=== PATIENT | female | born 1955 | race Hispanic/Latino ===

== ENCOUNTER → 2022-03-27 | Outpatient (CLI) | payer OTHER | END | disposition home or self-care (01) | LOC: ICE 11:10 | PROVIDERS: ATTEND Hospitalist | DX: Z20.822 Contact with and (suspected) exposure to COVID-19 (principal) | CPT/HCPCS: 87426 ==

== ENCOUNTER 2025-02-11 21:11 | Emergency (ER) | payer OTHER, MEDICARE ==
[~2025-02-11] VITALS: Ht 157.5 cm; Wt 83.9 kg
[2025-02-11 22:13] LABS: IMMATURE GRANULOCYTE ABSOLUTE 0.02 K/uL (0-1); NUCLEATED RED BLOOD CELLS 0.0 % (0.0-0.19); PLATELET COUNT (AUTO) 185 K/uL (130-400); RED BLOOD CELL COUNT(AUTO) 4.55 MIL/uL (4.00-5.50); RED CELL DISTRIBUTION WIDTH 12.5 % (11.0-15.5); WHITE BLOOD COUNT (AUTO) 6.4 K/uL (4.8-10.8)
--- NOTE | 2025-02-11 22:17 | EKG ---
[facility] Test Date: 2025-02-11 Test Time: 22:12:07 Pat Name: OTONIEL RUSH Department: [facility] Room: Gender: F Consolidator: [id number] : 1955 Requested By: CHRIS DONOVAN Order Number: [id number] Reading MD: Juan Nguyen Measurements Intervals [place] Rate: 70 P: 60 SD: 146 QRS: 27 QRSD: 87 T: 75 QT: 384 QTc: 415 Interpretive Statements Sinus rhythm Nonspecific T abnrm, anterolateral leads No previous ECG available for comparison Electronically Signed On 02-12-2025 13:24:07 CDT by Juan Nguyen Please click the below link to view image of tracing.
--- NOTE | 2025-02-11 22:21 | HMCIMG ---
EXAM: US for Deep Venous Thrombosis, left Lower Extremity. CLINICAL HISTORY: Left leg swelling. TECHNIQUE: Real-time ultrasound scan of the veins of the left lower extremity with color Doppler flow, spectral waveform analysis, and compression. COMPARISON: None provided. FINDINGS: DEEP VEINS: The common femoral, superficial femoral, and popliteal veins are echolucent and compressible. There is normal color Doppler flow throughout. The visualized calf veins appear patent. SOFT TISSUES: No popliteal fossa cyst or other abnormalities. IMPRESSION: No deep venous thrombosis is evident on left lower extremity examination. /[place]
[2025-02-11 22:26] LABS: CREATININE 0.6 mg/dL (0.5-1.0); GLOMERULAR FILTR. RATE CALC 97.0 mL/min (>90); GLUCOSE,RANDOM 103.0 mg/dL (70-105); SODIUM SERUM 140.0 mmol/L (136-145); UREA NITROGEN, BLOOD 11.0 mg/dL (7-18)
--- NOTE | 2025-02-11 23:17 | HMCIMG ---
EXAM: CR Left Ankle, 3 views. CLINICAL HISTORY: Pain. COMPARISON: None provided. FINDINGS: No acute fracture or aggressive appearing osseous lesion. Mild osteoarthritis. Large plantar and small posterior calcaneal enthesophytes. Diffuse soft tissue swelling is evident. IMPRESSION: No acute bony abnormality is evident. Mild osteoarthritis. Large plantar and small posterior calcaneal enthesophytes. /[place]
--- NOTE | 2025-02-11 23:42 | ERN ---
ED Note History of Present Illness Stated Complaint: LEFT ANKLE SWELLING Chief Complaint: Lower Extremity Pain/Injury Time Seen by MD: 21:23 Time Seen by Midlevel: 21:23 Dictation: The patient is a 69-year-old female with no significant past medical history who presents to the emergency department with complaints of left lower extremity swelling onset yesterday. Patient reports she was seen at urgent care and referred to ER to rule out DVT. Patient denies any shortness of breath, chest pain. Reports that is swelling is worse at her ankle but denies any ankle trauma. Denies any recent travel or recent surgery. Allergies: Coded Allergies: No Known Allergies (Unverified Allergy, Unknown, 02/11/25) Past Medical History Past Medical History: No Pertinent History Surgical History: RN Note Reviewed/Agreed w/PFSH: Yes Review of System Dictation Constitutional: Negative for fever,chills, and weight loss Eyes: Negative for injury, pain,redness, and discharge ENT: Negative for injury,pain or swelling Cardiovascular: Negative for chest pain, palpitations, positive for left lower extremity edema Respiratory: Negative for shortness of breath, cough, and wheezing, Abdomen/GI: Negative for abdominal pain, nausea, vomiting, diarrhea, and constip ation Back: Negative for injury and pain : Negative for injury, bleeding and discharge MS/Extremity: Negative for injury and deformity Skin: Negative for rash, and discoloration Neuro: Negative for headache, weakness, numbness, tingling, and seizure Psych: Negative for suicide ideation, homicidal ideation, and hallucinations Initial Vital Sign VS Vital Signs Date Time Temp Pulse Resp B/P (MAP) Pulse Ox O2 Delivery O2 Flow Rate FiO2 02/11/25 21:12 97.9 74 18 170/83 99 Room Air Physical Exam Dictation Vital Signs reviewed General Appearance: Alert, oriented x 3, no acute distress, well developed, nourished. Head and Face: non-traumatic. Eyes: PERRL, pink conjunctivas, eyelid no trauma, anterior chamber with arcus senilis. Ears: Pinnas intact and no signs of trauma or erythema ear canals clear and no discharge TM no erythema Nose: No discharge, no bleeding. Oropharynx: Mouth normal, tongue pink. pharynx clear,no erythema, tonsils no exudates, no abscesses noted, mucous membrane moist Neck: Supple, non-tender, no thyromegaly, no masses, no JVD, no bruits Breast:Deferred Chest:No tenderness, no crepitus, no paradoxical movement, no retractions Lungs:Clear, well-ventilated, symmetric, no rales, no wheezing, no rhonchi, no stridor, good breath sounds bilaterally Heart: Regular rate, regular rhythm, no murmur, no gallops Vascular: Scant left lower nonpitting edema Abdomen: Soft, positive bowel sounds, nondistended, no guarding, nontender, no rebound, no masses no hepatomegaly, no splenomegaly, no Heard's sign, no hernias. Rectal: Deferred Genital: Deferred Neurological: Normal speech, motor function intact, sensory function intact Musculoskeletal: Neck nontender, full range of motion, back nontender, full range of motion, Extremities: nontender, full range of motion Skin: Color pink, dry, no turgor, no rash, no lacerations, no abrasions, no contusions. Lymphatic: Deferred Results (Laboratory/Radiology) Laboratory/Radiology Laboratory Tests Test 02/11/25 20:26 White Blood Count 6.4 K/uL (4.8-10.8) Red Blood Count 4.55 MIL/uL (4.00-5.50) Hemoglobin 13.7 g/dL (12.0-16.0) Hematocrit 41.0 % (36-48) Mean Corpuscular Volume 90.1 fL (79-99) Mean Corpuscular Hemoglobin 30.1 pg (27.0-33.0) Mean Corpuscular Hemoglobin Concent 33.4 g/dL (32.0-36.0) Red Cell Distribution Width 12.5 % (11.0-15.5) Platelet Count 185 K/uL (130-400) Mean Platelet Volume 11.2 fL (7.5-10.5) H Immature Granulocyte % (Auto) 0.3 % (0-1) Neutrophils (%) (Auto) 48.7 % (40.0-77.0) Lymphocytes (%) (Auto) 41.3 % (21.0-51.0) Monocytes (%) (Auto) 6.8 % (3.0-13.0) Eosinophils (%) (Auto) 2.0 % (0.0-8.0) Basophils (%) (Auto) 0.9 % (0.0-5.0) Neutrophils # (Auto) 3.1 K/uL (1.8-7.7) Lymphocytes # (Auto) 2.6 K/uL (1.0-4.8) Monocytes # (Auto) 0.4 K/uL (0.1-1.0) Eosinophils # (Auto) 0.13 K/uL (0.00-0.70) Basophils # (Auto) 0.06 K/uL (0.00-0.20) Absolute Immature Granulocyte (auto 0.02 K/uL (0-1) Nucleated Red Blood Cells 0.0 % (0.0-0.19) Sodium Level 140 mmol/L (136-145) Potassium Level 3.5 mmol/L (3.5-5.1) Chloride Level 104 mmol/L (101-111) Carbon Dioxide Level 30 mmol/L (21-32) Blood Urea Nitrogen 11 mg/dL (7-18) Creatinine 0.6 mg/dL (0.5-1.0) Glomerular Filtration Rate Calc 97 mL/min (>90) Random Glucose 103 mg/dL (70-105) Total Calcium 9.2 mg/dL (8.5-10.1) Troponin I High Sensitivity 6 ng/L (4-50) B-Type Natriuretic Peptide 32 pg/mL (0-100) REASON: left leg swelling ORDERING PHYSICIAN: NELSON AZAR PROCEDURE: VENOUS UNI - US VENOUS DOPPLER UNILATERAL EXAM: US for Deep Venous Thrombosis, left Lower Extremity. CLINICAL HISTORY: Left leg swelling. TECHNIQUE: Real-time ultrasound scan of the veins of the left lower extremity with color Doppler flow, spectral waveform analysis, and compression. COMPARISON: None provided. FINDINGS: DEEP VEINS: The common femoral, superficial femoral, and popliteal veins are echolucent and compressible. There is normal color Doppler flow throughout. The visualized calf veins appear patent. SOFT TISSUES: No popliteal fossa cyst or other abnormalities. IMPRESSION: No deep venous thrombosis is evident on left lower extremity examination. /[place] Reviewed?: Yes EKG: (+) rhythm (Sinus rhythm) EKG Comment: Date:02/11/2025 Time:2211 Ventricular rate:70 AL interval:146 QRS duration:87 QT/QTc:384/415 EKG interpretation: Sinus rhythm, nonspecific T-wave abnormalities Reviewed by ED Attending no STEMI ED Course ED Course Orders Procedure Category Date Status Time Cbc With Differential LAB 02/11/25 Complete 21:14 Basic Metabolic Panel LAB 02/11/25 Complete 21:14 B-Type Natriuretic LAB 02/11/25 Complete Peptide 21:14 12 Lead Ekg Tracing- EKG 02/11/25 Complete Technical 21:14 Troponin I High LAB 02/11/25 Complete Sensitivity 21:14 Us Venous Doppler US 02/11/25 Resulted Unilateral 21:37 Ankle Comp 3vws Lt RAD 02/11/25 Resulted 21:43 Vital Signs Date Time Temp Pulse Resp B/P (MAP) Pulse Ox O2 Delivery O2 Flow Rate FiO2 02/11/25 21:12 97.9 74 18 170/83 99 Room Air Medical Decision Making MDM The patient is a 69-year-old female with no significant past medical history who presents to the emergency department with complaints of left lower extremity swelling onset yesterday. Patient reports she was seen at urgent care and referred to ER to rule out DVT. Patient denies any shortness of breath, chest pain. Reports that is swelling is worse at her ankle but denies any ankle trauma. Denies any recent travel or recent surgery. CBC showed no leukocytosis, no anemia, chemistry showed no electrolyte imbalance, negative troponin, negative BNP. X-ray showed mild ortho arthritis, ultrasound showed negative DVT. On physical exam patient is in no acute distress, nontoxic appearance, neurovascularly intact. Patient will be discharged to follow up with PCP Differential diagnosis: DVT, kidney failure, fluid overload, ankle fracture Need for hospitalization: Patient does not meet criteria for hospitalization. There are no social concerns with this patient. DX & DISP Disposition: Discharge Departure Impression: Primary Impression: Edema of left lower extremity Additional Impression: Osteoarthritis of left ankle Condition: Stable Additional Instructions: Your labs were unremarkable. Your x-ray did not show any fractures, your ultrasound did not show any evidence of deep vein thrombosis please follow up with your primary doctor in 1-2 days. You can elevate your leg to help with the swelling. If anything worsens please return to ER. FOLLOW-UP WITH PRIMARY CARE PROVIDER IN 1 TO 2 DAYS. TAKE MEDICATIONS DIRECTED HERE IN THE EMERGENCY ROOM. OKAY TO CONTINUE HOME MEDICATIONS UNLESS OTHERWISE DISCUSSED DURING YOUR VISIT IN THE EMERGENCY ROOM TODAY. RETURN TO YOUR NEAREST EMERGENCY ROOM IF SYMPTOMS WORSEN OR IF THERE IS NO IMPROVEMENT. CALL 911 IF YOU NEED IMMEDIATE ASSISTANCE. TAKE TYLENOL [id number] NEEDED AND IF NO CONTRAINDICATIONS ARE PRESENT. INCREASE ORAL HYDRATION. A WOUND CULTURE OR URINE CULTURE WAS ORDERED HERE IN THE EMERGENCY ROOM DEPARTMENT PLEASE FOLLOW-UP WITH PRIMARY CARE PROVIDER AND ADVISE THEM TO GET REPEAT PORTS FROM OUR FACILITY. IF YOU HAD ANY MARILY WRAP/SPLINTS THAT WERE APPLIED HERE, PLEASE DO NOT REMOVE THEM UNTIL YOU SEE YOUR PRIMARY CARE OR SPECIALTY. Referrals: JANINA GIRARD MD (PCP) Time of Disposition: 23:42 I have reviewed the case, and I agree with, Diagnosis and Plan NELSON AZAR CONTINUOUS MINING MACHINE OPERATOR Feb 11, 2025 23:42
[2025-02-12 00:14] VITALS: BP 143/68; PULSE 67; RESP 18; TEMP 96.3; O2SAT 98
== END 2025-02-12 00:15 | disposition home or self-care (01) ==
LOC: EDH 21:11
DX: R60.0 Localized edema (principal); M19.072 Primary osteoarthritis, left ankle and foot; Z98.890 Other specified postprocedural states
CPT/HCPCS: 36415; 73610; 80048; 83880; 84484; 85025; 93005; 93971; 99285